=== PATIENT | female | born 1995 | race Two or more races ===

== ENCOUNTER 2022-10-31 22:30 | Emergency (ER) | payer OTHER ==
[~2022-10-31] VITALS: Ht 152.4 cm; Wt 57.6 kg
[2022-10-31] MEDS ORDERED: PRENA1 TRUE CO1 EACH PO (23:15)
[2022-10-31] MEDS ORDERED: PROMETRIUM200 MG PO (23:15)
[2022-11-01] MEDS ORDERED: PROMETRIUM200 MG PO (04:39)
== END 2022-11-01 04:44 ==
LOC: ER 22:30
DX: O20.9 Hemorrhage in early pregnancy, unspecified (principal); Z3A.08 8 weeks gestation of pregnancy

== ENCOUNTER 2023-05-09 13:29 | Outpatient (CLI) | payer OTHER ==
[~2023-05-09 13:29] MED LIST: PRENA1 TRUE CO1 EACH PO; PROMETRIUM200 MG PO
== END 2023-05-09 13:53 | disposition home or self-care (01) ==
LOC: NST 13:29
PROVIDERS: ATTEND Specialist
DX: Z34.83 Encounter for supervision of other normal pregnancy, third trimester (principal)

== ENCOUNTER 2023-06-01 13:15 | Inpatient (IN) | payer OTHER ==
[~2023-06-01] VITALS: Ht 152.4 cm; Wt 77.6 kg
[2023-06-16] MEDS ORDERED: BUSPIRONE HCL7.5 MG PO (06:36)
[2023-06-16] MEDS ORDERED: RINGERS SOLUTION,LACTATED 100 ML IV SCH (06:45)
[2023-06-16 06:59] LABS: HEMATOCRIT 36.5 % (36.0-45.00); HEMOGLOBIN 12.5 g/dL (12.0-15.00); MEAN CORPUSCULAR HEMOGLOBIN 31.4 pg (27.00-32.0); MEAN CORPUSCULAR HGB CONC 34.2 g/dl (32.0-36.0); PLATELET COUNT 132 K/uL (150-450); RED BLOOD COUNT 3.97 M/uL (4.00-6.00); RED CELL DISTRIBUTION WIDTH 14.5 % (11.5-14.5)
[2023-06-16] MEDS ORDERED: MISOPROSTOL 50 MCG TABLET ONE (07:26)
[2023-06-16 07:30] LABS: PH,URINE 7.5 (5.0-8.0); URINE APPEARANCE Clear; URINE BILIRRUBIN Negative (NEGATIVE); URINE BLOOD Negative; URINE COLOR Yellow; URINE GLUCOSE Negative (NEGATIVE); URINE LEUKOCYTE Trace; URINE NITRATE Negative; URINE PROTEIN Negative (NEGATIVE); URINE UROBILINOGEN 0.2 E.U./dl
[2023-06-16 07:33] LABS: URINE BACTERIA 3221.5 uL (0.0-1933); URINE EPITHELIAL CELLS 53.4 uL (0.0-38.8); URINE RBC 10.3 uL (0.0-20.8); URINE WBC 24.7 uL (0.0-23.2)
[2023-06-16 07:40] LABS: INR < 0.93; PARTIAL THROMBOPLASTIN TIME 28.5 SECONDS (22.0-34.0); PROTHROMBIN TIME 9.6 SECONDS (9.0-11.5)
[2023-06-16] MEDS ORDERED: OXYTOCIN 500 ML IV SCH (08:00)
[2023-06-16] MEDS ORDERED: ACETAMINOPHEN 325 MG TABLET PO PRN (18:15)
[2023-06-16] MEDS ORDERED: LIDOCAINE HCL 1% 200MG/20ML VIAL IJ ONE (18:15)
[2023-06-16] MEDS ORDERED: CHLORHEXIDINE GLUCONATE 120 ML BOTTLE TOP ONE ×2 (18:15→20:59)
[2023-06-16] MEDS ORDERED: OXYTOCIN 20 UNITS/1000ML RL PIGGYBAG IV ONE (18:15)
[2023-06-16] MEDS ORDERED: ERYTHROMYCIN BASE 1 GM TUBE OP ONE (18:15)
[2023-06-16] MEDS ORDERED: OxyCODONE HCL/APAP UD (PERCOCET) PO PRN (18:15)
[2023-06-17 02:45] LABS: HEMATOCRIT 31.3 % (36.0-45.00); HEMOGLOBIN 10.7 g/dL (12.0-15.00); MEAN CELL VOLUME 92.6 fL (80.00-100.00); MEAN CORPUSCULAR HEMOGLOBIN 31.6 pg (27.00-32.0); MEAN CORPUSCULAR HGB CONC 34.2 g/dl (32.0-36.0); PLATELET COUNT 129 K/uL (150-450); RED BLOOD COUNT 3.39 M/uL (4.00-6.00); RED CELL DISTRIBUTION WIDTH 14.6 % (11.5-14.5)
[2023-06-17] MEDS ORDERED: BENZOCAINE/MENTHOL 90 ML BOTTLE TOP SCH (09:00)
[2023-06-17] MEDS ORDERED: HYDROCORTISONE 2.5% 30 GM TUBE RECTAL SCH (09:00)
[2023-06-17] MEDS ORDERED: BUSPIRONE HCL5 MG (09:03)
[2023-06-18] MEDS ORDERED: IBUPROFEN800 MG PO (07:44)
[2023-06-18] MEDS ORDERED: ANUSOL-HC30 G2 RECTAL (07:44)
== END 2023-06-18 16:03 | disposition home or self-care (01) | DRG 807 ==
LOC: OB/GYN 06-09 13:15 → LDR 06-16 05:27 → OB/GYN 06-16 05:27 → LDR 06-16 05:47 → OB/GYN 06-16 20:32
PROVIDERS: ADMIT Specialist; ATTEND Specialist
PROC: 10E0XZZ Delivery of Products of Conception, External Approach (ICD-10-PCS; principal; 2023-06-16)
PROC: 0HQ9XZZ Repair Perineum Skin, External Approach (ICD-10-PCS; 2023-06-16)
PROC: 4A1HXCZ Monitoring of Products of Conception, Cardiac Rate, External Approach (ICD-10-PCS; 2023-06-16)
PROC: 3E033VJ Introduction of Other Hormone into Peripheral Vein, Percutaneous Approach (ICD-10-PCS; 2023-06-16)
DX: O70.0 First degree perineal laceration during delivery (principal); Z37.0 Single live birth; O48.0 Post-term pregnancy; Z3A.40 40 weeks gestation of pregnancy; Z20.822 Contact with and (suspected) exposure to COVID-19